=== PATIENT | male | born 1950 | race Two or more races ===

== ENCOUNTER 2024-02-02 19:43 | Inpatient (IN) | payer MEDICARE, OTHER ==
[~2024-02-02] VITALS: Ht 177.8 cm; Wt 121.6 kg
[2024-02-02] MEDS: VANCOMYCIN 1 GM in IV D5W 250 ML IV ONE (00:30)
[2024-02-02 20:28] LABS: BASOPHILS % (AUTO) 0.3 % (0.0-2.0); EOSINOPHILS % (AUTO) 0.1 % (0.0-6.0); HEMATOCRIT 45 % (39-51); HEMOGLOBIN 13.9 g/dL (13.5-17.5); LYMPHOCYTES # (AUTO) 0.7 K/uL (0.8-4.8); LYMPHOCYTES % (AUTO) 4.5 % (20.0-44.0); MEAN CORPUSCULAR HEMOGLOBIN 32 PG (26.0-33.0); MEAN CORPUSCULAR HGB CONC 31 g/dl (31.0-36.0); MEAN CORPUSCULAR VOLUME 103 fL (80-96); MONOCYTES # (AUTO) 0.8 K/uL (0.1-1.30); MONOCYTES % (AUTO) 5.3 % (2.0-12.0); NEUTROPHILS # (AUTO) 13.8 K/uL (1.8-8.9); NEUTROPHILS % (AUTO) 89.8 % (43.0-81.0); PLATELET COUNT (AUTO) 137 K/uL (150-450); RED BLOOD CELL COUNT(AUTO) 4.36 MIL/uL (4.5-6.0); RED CELL DISTRIBUTION WIDTH 15.2 % (11.5-15.0); WHITE BLOOD COUNT (AUTO) 15.3 K/uL (4.3-11.0)
[2024-02-02 20:37] LABS: CALCIUM, SERUM 8.9 mg/dL (8.5-10.1); CARBON DIOXIDE 24 mmol/L (21-32); CHLORIDE 103 mmol/L (98-107); CREATININE 2.4 mg/dL (0.6-1.3); GLUCOSE 134 mg/dL (74-106); POTASSIUM 4.3 mmol/L (3.5-5.1); SODIUM SERUM 135 mmol/L (136-145); UREA NITROGEN, BLOOD 37 mg/dL (7-18)
[2024-02-02 20:48] LABS: APPEARANCE,URINE Clear (CLEAR); BILIRUBIN,URINE Negative (NEGATIVE); BLOOD, URINE Trace-lysed Ery/uL (NEGATIVE); COLOR,URINE YELLOW (YELLOW); KETONES,URINE Trace mg/dL (NEGATIVE); LEUKOCYTE ESTERASE ,URINE Negative (NEGATIVE); NITRITE, URINE Negative (NEGATIVE); PH,URINE 5.5 (5.0-8.0); PROTEIN,URINE 30 mg/dl (NEGATIVE); UGLUCOSE Negative (NEGATIVE); UROBILINOGEN,URINE 0.2 EU/dL (0.2)
[2024-02-02] MEDS ORDERED: CEFEPIME 1 GM VIAL ONE (23:04)
[2024-02-02] MEDS ORDERED: VANCOMYCIN 1 GM /D5W 250 ML PB IV ONE (23:04)
[2024-02-02] MEDS: CEFEPIME 1 GM in IV D5W 50 ML IV ONE (23:30)
[2024-02-02] MEDS: IV NS 0.9% 1,000 ML BAG IV ONE (23:30)
[2024-02-02] MEDS: ACETAMINOPHEN ES 500 MG TABLET PO ONE (23:34)
[2024-02-03] MEDS ORDERED: ONDANSETRON HCL/PF 4 MG/2 ML VIAL IVP PRN (01:30)
[2024-02-03] MEDS: IV NS 0.9% 1,000 ML IV PRN (01:37)
[2024-02-03 01:45] VITALS: BP 113/64; TEMP 97.7; O2SAT 94
[2024-02-03 04:00] VITALS: BP 110/52; TEMP 98.2; O2SAT 95
[2024-02-03] MEDS: HYDROMORPHONE HCL 2 MG TABLET PO PRN (05:02)
[2024-02-03 07:00] VITALS: BP 102/75; TEMP 98.6; O2SAT 100
[2024-02-03 07:00] LABS: BASOPHILS % (AUTO) 0.2 % (0.0-2.0); EOSINOPHILS % (AUTO) 0.1 % (0.0-6.0); HEMATOCRIT 38 % (39-51); HEMOGLOBIN 12.2 g/dL (13.5-17.5); LYMPHOCYTES # (AUTO) 1.7 K/uL (0.8-4.8); MEAN CORPUSCULAR HEMOGLOBIN 33 PG (26.0-33.0); MEAN CORPUSCULAR HGB CONC 33 g/dl (31.0-36.0); MEAN CORPUSCULAR VOLUME 100 fL (80-96); MONOCYTES % (AUTO) 7.9 % (2.0-12.0); NEUTROPHILS # (AUTO) 10.2 K/uL (1.8-8.9); NEUTROPHILS % (AUTO) 78.8 % (43.0-81.0); PLATELET COUNT (AUTO) 111 K/uL (150-450); RED BLOOD CELL COUNT(AUTO) 3.74 MIL/uL (4.5-6.0)
[2024-02-03] MEDS ORDERED: Z GUARD REMEDY 4 OZ OINT TP PRN (08:30)
[2024-02-03] MEDS ORDERED: FURO40TA5 PO (08:46)
[2024-02-03] MEDS ORDERED: ALPR0.5T8 PO (08:46)
[2024-02-03] MEDS ORDERED: ALLO100T PO (08:46)
[2024-02-03] MEDS ORDERED: ASPI-1420 PO (08:46)
[2024-02-03] MEDS ORDERED: CLOP75TA15 PO (08:46)
[2024-02-03] MEDS ORDERED: PATI8.4P PO (08:46)
[2024-02-03] MEDS ORDERED: OMEP20CA15 PO (08:46)
[2024-02-03] MEDS ORDERED: LOSA25TA3 PO (08:46)
[2024-02-03] MEDS ORDERED: HYDR4TAB57 PO (08:46)
[2024-02-03] MEDS ORDERED: AMIO200T5 PO (08:46)
[2024-02-03] MEDS ORDERED: VITA-354 PO (08:46)
[2024-02-03] MEDS ORDERED: ATOR10TA PO (08:46)
[2024-02-03] MEDS ORDERED: CARV6.252 PO (08:46)
[2024-02-03] MEDS ORDERED: ASCO-352 PO (08:46)
[2024-02-03] MEDS: Z GUARD REMEDY 4 OZ OINT TP SCH (09:00)
[2024-02-03] MEDS ORDERED: AMIODARONE HCL 200 MG TABLET PO SCH (09:00)
[2024-02-03] MEDS ORDERED: PANTOPRAZOLE 40 MG TABLET.DR PO PRN (10:00)
[2024-02-03] MEDS: HEPARIN SODIUM, PORCINE 5000 UNITS/1 ML VIAL SQ SCH (10:21)
[2024-02-03] MEDS: CLOPIDOGREL BISULFATE 75 MG TABLET PO SCH (10:26)
[2024-02-03] MEDS: ASPIRIN EC 81 MG TABLET.DR PO SCH (10:26)
[2024-02-03] MEDS: FUROSEMIDE 40 MG TABLET PO SCH (10:26)
[2024-02-03] MEDS: ATORVASTATIN 10 MG TABLET PO SCH (10:26)
[2024-02-03] MEDS: LOSARTAN POTASSIUM 25 MG TABLET PO SCH (10:27)
[2024-02-03] MEDS: CARVEDILOL 6.25 MG TABLET PO SCH (10:27)
[2024-02-03] MEDS: ALLOPURINOL 100 MG TABLET PO SCH (10:27)
[2024-02-03] MEDS: AMIODARONE HCL 200 MG TABLET PO SCH (10:28)
[2024-02-03 10:48] LABS: THYROID STIMULATING HORMONE 0.131 uIU/mL (0.358-3.74)
[2024-02-03 11:02] LABS: CARBON DIOXIDE 23 mmol/L (21-32); CHLORIDE 102 mmol/L (98-107); GLUCOSE 113 mg/dL (74-106); MAGNESIUM 2.2 mg/dL (1.8-2.4); PHOSPHORUS 2.2 mg/dL (2.5-4.9); SODIUM SERUM 136 mmol/L (136-145); UREA NITROGEN, BLOOD 33 mg/dL (7-18)
[2024-02-03] MEDS: CEFEPIME 1 GM in IV D5W 50 ML IV SCH (11:22)
[2024-02-03 11:30] VITALS: BP_SYST 120; BP_SYST 124; BP_DIAS 51; BP_DIAS 69; BP_DIAS 86; TEMP 97.9; TEMP 98.4; TEMP 98.6; O2SAT 94; O2SAT 95; O2SAT 96
[2024-02-03] MEDS: NEUTRA PHOS 1 POWD.PACKET PO ONE (13:32)
[2024-02-03] MEDS: ACETAMINOPHEN 325 MG TABLET PO PRN (13:32)
[2024-02-03 16:00] VITALS: BP 101/61; TEMP 97.4; O2SAT 95
[2024-02-03 20:00] VITALS: BP 115/55; TEMP 97.9; O2SAT 97
[2024-02-03] MEDS: MEROPENEM 1 G in IV NS 0.9% 100 ML IV SCH (21:22)
[2024-02-04] VITALS: BP 131/61; TEMP 98.4; O2SAT 97
[2024-02-04] MEDS: VANCOMYCIN HCL 1.25 GM in IV D5W 250 ML IV SCH (00:47)
[2024-02-04 04:00] VITALS: BP 146/65; TEMP 98.1; O2SAT 97
[2024-02-04 07:11] LABS: BASOPHILS % (AUTO) 0.3 % (0.0-2.0); EOSINOPHILS % (AUTO) 0.3 % (0.0-6.0); HEMATOCRIT 36 % (39-51); LYMPHOCYTES # (AUTO) 1.3 K/uL (0.8-4.8); LYMPHOCYTES % (AUTO) 13.6 % (20.0-44.0); MEAN CORPUSCULAR HEMOGLOBIN 33 PG (26.0-33.0); MEAN CORPUSCULAR HGB CONC 33 g/dl (31.0-36.0); MEAN CORPUSCULAR VOLUME 99 fL (80-96); MONOCYTES # (AUTO) 0.9 K/uL (0.1-1.30); MONOCYTES % (AUTO) 9.6 % (2.0-12.0); NEUTROPHILS # (AUTO) 7.3 K/uL (1.8-8.9); NEUTROPHILS % (AUTO) 76.2 % (43.0-81.0); PLATELET COUNT (AUTO) 110 K/uL (150-450); RED BLOOD CELL COUNT(AUTO) 3.63 MIL/uL (4.5-6.0); RED CELL DISTRIBUTION WIDTH 14.6 % (11.5-15.0); WHITE BLOOD COUNT (AUTO) 9.5 K/uL (4.3-11.0)
[2024-02-04 07:21] LABS: CHOLESTEROL 106 mg/dL (<200); HDL CHOLESTEROL 41 mg/dL (40-60); LDL 54 mg/dL (0-99); TRIGLYCERIDES 87 mg/dL (30-150)
[2024-02-04 07:24] LABS: ALANINE AMINOTRANSFERASE 138 U/L (12-78); ALBUMIN 2.4 g/dL (3.4-5.0); ALKALINE PHOSPHATASE 141 U/L (46-116); ASPARTATE AMINOTRANSFERASE 110 U/L (15-37); BILIRUBIN,TOTAL 1.2 mg/dL (0.2-1.0); CALCIUM, SERUM 9.2 mg/dL (8.5-10.1); CARBON DIOXIDE 24 mmol/L (21-32); CHLORIDE 104 mmol/L (98-107); CREATININE 1.7 mg/dL (0.6-1.3); GLUCOSE 106 mg/dL (74-106); MAGNESIUM 2.2 mg/dL (1.8-2.4); PHOSPHORUS 2.5 mg/dL (2.5-4.9); SODIUM SERUM 138 mmol/L (136-145); TOTAL PROTEIN, SERUM 6.7 g/dL (6.4-8.2); UREA NITROGEN, BLOOD 27 mg/dL (7-18)
[2024-02-04 07:30] VITALS: BP 128/69; TEMP 98.4; O2SAT 96
[2024-02-04] MEDS: MUPIROCIN OINT 2% 22 GM TUBE TP SCH (08:34)
[2024-02-04 16:00] VITALS: BP 130/58; TEMP 98.2; O2SAT 96
[2024-02-04 20:00] VITALS: BP 111/56; TEMP 97.4; O2SAT 94
[2024-02-04] MEDS: diphenhydrAMINE HCL 50 MG/ML VIAL IV ONE (20:18)
[2024-02-04] MEDS: METOCLOPRAMIDE HCL 10 MG/2 ML VIAL IV ONE (20:19)
[2024-02-05] VITALS: BP 132/65; TEMP 97.4; O2SAT 96
[2024-02-05 04:00] VITALS: BP 139/75; TEMP 97.2; TEMP 97.8; O2SAT 94
[2024-02-05 08:00] VITALS: BP 138/76; TEMP 97.8; O2SAT 95
[2024-02-05] MEDS: SUMATRIPTAN SUCCINATE 100 MG TABLET PO PRN (08:34)
[2024-02-05 09:43] LABS: BASOPHILS % (AUTO) 0.5 % (0.0-2.0); EOSINOPHILS # (AUTO) 0.1 K/uL (0.0-0.7); HEMATOCRIT 37 % (39-51); HEMOGLOBIN 12.3 g/dL (13.5-17.5); LYMPHOCYTES # (AUTO) 1.4 K/uL (0.8-4.8); LYMPHOCYTES % (AUTO) 15.9 % (20.0-44.0); MEAN CORPUSCULAR HEMOGLOBIN 33 PG (26.0-33.0); MEAN CORPUSCULAR HGB CONC 33 g/dl (31.0-36.0); MEAN CORPUSCULAR VOLUME 100 fL (80-96); MONOCYTES # (AUTO) 0.7 K/uL (0.1-1.30); MONOCYTES % (AUTO) 7.6 % (2.0-12.0); NEUTROPHILS # (AUTO) 6.5 K/uL (1.8-8.9); PLATELET COUNT (AUTO) 138 K/uL (150-450); RED BLOOD CELL COUNT(AUTO) 3.73 MIL/uL (4.5-6.0); RED CELL DISTRIBUTION WIDTH 14.9 % (11.5-15.0); WHITE BLOOD COUNT (AUTO) 8.6 K/uL (4.3-11.0)
[2024-02-05 09:53] LABS: ALANINE AMINOTRANSFERASE 108 U/L (12-78); ALBUMIN 2.2 g/dL (3.4-5.0); ALKALINE PHOSPHATASE 139 U/L (46-116); ASPARTATE AMINOTRANSFERASE 65 U/L (15-37); BILIRUBIN,DIRECT 0.3 mg/dL (0.0-0.2); BILIRUBIN,TOTAL 0.8 mg/dL (0.2-1.0); CALCIUM, SERUM 9.3 mg/dL (8.5-10.1); CARBON DIOXIDE 27 mmol/L (21-32); CHLORIDE 103 mmol/L (98-107); CREATININE 1.7 mg/dL (0.6-1.3); GLUCOSE 116 mg/dL (74-106); MAGNESIUM 1.9 mg/dL (1.8-2.4); PHOSPHORUS 2.6 mg/dL (2.5-4.9); POTASSIUM 4.2 mmol/L (3.5-5.1); SODIUM SERUM 138 mmol/L (136-145); TOTAL PROTEIN, SERUM 6.8 g/dL (6.4-8.2); UREA NITROGEN, BLOOD 26 mg/dL (7-18)
[2024-02-05 12:00] VITALS: BP 123/76; TEMP 98.2; O2SAT 97
[2024-02-05 16:00] VITALS: BP 128/65; TEMP 98.4; O2SAT 96
[2024-02-05 20:00] VITALS: BP 141/68; TEMP 98.1; O2SAT 95
[2024-02-06 00:14] VITALS: BP 139/63; TEMP 97.5; O2SAT 96
[2024-02-06 04:00] VITALS: BP 137/65; TEMP 97.3; O2SAT 97
[2024-02-06] MEDS: HYDROMORPHONE HCL 2 MG TABLET PO PRN (04:06)
[2024-02-06 07:00] VITALS: BP 132/63; TEMP 97.7; O2SAT 95
[2024-02-06 07:01] LABS: BASOPHILS % (AUTO) 0.4 % (0.0-2.0); EOSINOPHILS # (AUTO) 0.1 K/uL (0.0-0.7); HEMATOCRIT 37 % (39-51); HEMOGLOBIN 12.5 g/dL (13.5-17.5); LYMPHOCYTES # (AUTO) 1.8 K/uL (0.8-4.8); LYMPHOCYTES % (AUTO) 19.4 % (20.0-44.0); MEAN CORPUSCULAR HEMOGLOBIN 33 PG (26.0-33.0); MEAN CORPUSCULAR HGB CONC 34 g/dl (31.0-36.0); MEAN CORPUSCULAR VOLUME 99 fL (80-96); MONOCYTES # (AUTO) 0.9 K/uL (0.1-1.30); MONOCYTES % (AUTO) 9.8 % (2.0-12.0); NEUTROPHILS # (AUTO) 6.3 K/uL (1.8-8.9); NEUTROPHILS % (AUTO) 69.4 % (43.0-81.0); PLATELET COUNT (AUTO) 159 K/uL (150-450); RED BLOOD CELL COUNT(AUTO) 3.74 MIL/uL (4.5-6.0); RED CELL DISTRIBUTION WIDTH 14.2 % (11.5-15.0); WHITE BLOOD COUNT (AUTO) 9.1 K/uL (4.3-11.0)
[2024-02-06 07:43] LABS: CALCIUM, SERUM 9.6 mg/dL (8.5-10.1); CARBON DIOXIDE 28 mmol/L (21-32); CHLORIDE 100 mmol/L (98-107); CREATININE 1.7 mg/dL (0.6-1.3); GLUCOSE 92 mg/dL (74-106); MAGNESIUM 2.2 mg/dL (1.8-2.4); PHOSPHORUS 2.8 mg/dL (2.5-4.9); POTASSIUM 3.9 mmol/L (3.5-5.1); SODIUM SERUM 134 mmol/L (136-145); UREA NITROGEN, BLOOD 23 mg/dL (7-18)
[2024-02-06 08:58] LABS: FREE PSA 0.61 ng/mL (0.00-45); PROSTATE SPECIFIC ANTIGEN SCR 3.85 ng/mL (0.00-4.00)
[2024-02-06 16:00] VITALS: BP 122/66; TEMP 97.9; O2SAT 95
[2024-02-06 20:00] VITALS: BP 134/59; TEMP 97.2; O2SAT 95
[2024-02-07] VITALS: BP 133/64; TEMP 97.6; O2SAT 94
[2024-02-07] MEDS ORDERED: SUMATRIPTAN SUCCINATE 100 MG TABLET ONE (03:38)
[2024-02-07 04:00] VITALS: BP 140/74; TEMP 97.8; O2SAT 95
[2024-02-07 05:00] VITALS: BP 140/74; TEMP 97.8; O2SAT 95
[2024-02-07 07:34] LABS: BASOPHILS % (AUTO) 0.5 % (0.0-2.0); EOSINOPHILS # (AUTO) 0.1 K/uL (0.0-0.7); HEMATOCRIT 39 % (39-51); LYMPHOCYTES # (AUTO) 1.7 K/uL (0.8-4.8); LYMPHOCYTES % (AUTO) 20.5 % (20.0-44.0); MEAN CORPUSCULAR HEMOGLOBIN 33 PG (26.0-33.0); MEAN CORPUSCULAR HGB CONC 33 g/dl (31.0-36.0); MEAN CORPUSCULAR VOLUME 99 fL (80-96); MONOCYTES # (AUTO) 0.8 K/uL (0.1-1.30); MONOCYTES % (AUTO) 9.9 % (2.0-12.0); NEUTROPHILS # (AUTO) 5.5 K/uL (1.8-8.9); NEUTROPHILS % (AUTO) 68.1 % (43.0-81.0); PLATELET COUNT (AUTO) 160 K/uL (150-450); RED BLOOD CELL COUNT(AUTO) 3.99 MIL/uL (4.5-6.0); RED CELL DISTRIBUTION WIDTH 14.5 % (11.5-15.0); WHITE BLOOD COUNT (AUTO) 8.1 K/uL (4.3-11.0)
[2024-02-07 08:03] LABS: CALCIUM, SERUM 9.7 mg/dL (8.5-10.1); CARBON DIOXIDE 26 mmol/L (21-32); CHLORIDE 103 mmol/L (98-107); CREATININE 1.6 mg/dL (0.6-1.3); GLUCOSE 94 mg/dL (74-106); MAGNESIUM 2.3 mg/dL (1.8-2.4); PHOSPHORUS 3.1 mg/dL (2.5-4.9); POTASSIUM 4.2 mmol/L (3.5-5.1); SODIUM SERUM 138 mmol/L (136-145); UREA NITROGEN, BLOOD 20 mg/dL (7-18)
[2024-02-07 08:38] VITALS: BP 170/88; TEMP 98.4; O2SAT 97
[2024-02-07] MEDS: LIDOCAINE 1% INJ 50 ML MDV IJ ONE (14:10)
[2024-02-07 16:13] VITALS: BP 120/68; TEMP 98.1; O2SAT 97
[2024-02-07 20:00] VITALS: BP 110/66; TEMP 97.5; O2SAT 96
[2024-02-07] MEDS: NORTRIPTYLINE HCL 10 MG CAPSULE PO SCH (21:25)
[2024-02-08] MEDS ORDERED: SUMATRIPTAN SUCCINATE 25 MG TABLET ONE (03:55)
[2024-02-08] MEDS: SUMATRIPTAN SUCCINATE 25 MG TABLET PO ONE (03:58)
[2024-02-08 06:50] LABS: BASOPHILS # (AUTO) 0.1 K/uL (0.0-0.2); BASOPHILS % (AUTO) 0.7 % (0.0-2.0); EOSINOPHILS # (AUTO) 0.1 K/uL (0.0-0.7); EOSINOPHILS % (AUTO) 1.3 % (0.0-6.0); HEMATOCRIT 38 % (39-51); HEMOGLOBIN 12.8 g/dL (13.5-17.5); LYMPHOCYTES # (AUTO) 1.8 K/uL (0.8-4.8); LYMPHOCYTES % (AUTO) 23.2 % (20.0-44.0); MEAN CORPUSCULAR HEMOGLOBIN 33 PG (26.0-33.0); MEAN CORPUSCULAR HGB CONC 33 g/dl (31.0-36.0); MEAN CORPUSCULAR VOLUME 98 fL (80-96); MONOCYTES # (AUTO) 0.7 K/uL (0.1-1.30); MONOCYTES % (AUTO) 9.7 % (2.0-12.0); NEUTROPHILS % (AUTO) 65.1 % (43.0-81.0); PLATELET COUNT (AUTO) 155 K/uL (150-450); RED BLOOD CELL COUNT(AUTO) 3.91 MIL/uL (4.5-6.0); RED CELL DISTRIBUTION WIDTH 14.2 % (11.5-15.0); WHITE BLOOD COUNT (AUTO) 7.7 K/uL (4.3-11.0)
[2024-02-08 07:02] LABS: CARBON DIOXIDE 28 mmol/L (21-32); CHLORIDE 99 mmol/L (98-107); CREATININE 1.7 mg/dL (0.6-1.3); GLUCOSE 94 mg/dL (74-106); MAGNESIUM 2.1 mg/dL (1.8-2.4); PHOSPHORUS 3.1 mg/dL (2.5-4.9); POTASSIUM 4.1 mmol/L (3.5-5.1); SODIUM SERUM 135 mmol/L (136-145); UREA NITROGEN, BLOOD 21 mg/dL (7-18)
[2024-02-08 07:30] VITALS: BP 151/65; TEMP 97.5; O2SAT 93
[2024-02-08] MEDS ORDERED: BACLOFEN (10 MG) 10 MG TABLET PO PRN (10:00)
[2024-02-08 16:00] VITALS: BP 123/76; TEMP 98.1; O2SAT 96
[2024-02-08 20:00] VITALS: BP 135/101; TEMP 97.5; O2SAT 99
== END 2024-02-08 20:45 | DRG 871 ==
LOC: ER 19:45 → TELE 23:55 → MED 02-07 06:06
PROVIDERS: ADMIT Nurse Practitioner Acute Care; ATTEND Nurse Practitioner Family
PROC: 05HD33Z Insertion of Infusion Device into Right Cephalic Vein, Percutaneous Approach (ICD-10-PCS; principal; 2024-02-06)
DX: A41.9 Sepsis, unspecified organism (principal); N17.0 Acute kidney failure with tubular necrosis; N39.0 Urinary tract infection, site not specified; I13.0 Hypertensive heart and chronic kidney disease with heart failure and stage 1 through stage 4 chronic kidney disease, or unspecified chronic kidney disease; Z16.24 Resistance to multiple antibiotics; D68.59 Other primary thrombophilia; E87.1 Hypo-osmolality and hyponatremia; I47.20 Ventricular tachycardia, unspecified; L97.929 Non-pressure chronic ulcer of unspecified part of left lower leg with unspecified severity; N18.9 Chronic kidney disease, unspecified; Z18.12 Retained nonmagnetic metal fragments; E66.01 Morbid (severe) obesity due to excess calories; I50.9 Heart failure, unspecified; I87.309 Chronic venous hypertension (idiopathic) without complications of unspecified lower extremity; M17.11 Unilateral primary osteoarthritis, right knee; M21.172 Varus deformity, not elsewhere classified, left ankle; V29.99XS Rider (driver) (passenger) of other motorcycle injured in unspecified traffic accident, sequela; R26.9 Unspecified abnormalities of gait and mobility; G89.29 Other chronic pain; E86.1 Hypovolemia; G43.909 Migraine, unspecified, not intractable, without status migrainosus; M25.461 Effusion, right knee; Z79.82 Long term (current) use of aspirin; Z79.02 Long term (current) use of antithrombotics/antiplatelets; Z79.899 Other long term (current) drug therapy
CPT/HCPCS: 36410; 36415; 70450-TC; 71045-TC; 72125-TC; 73564-TC; 76700-TC; 80048-TC; 80053-TC; 80061-TC; 80076-TC; 80202-TC; 83605-TC; 83735-TC; 84100-TC; 84153-TC; 84154-TC; 84439-TC; 84443-TC; 84484-TC; 85025-TC; 87040-TC; 87081-TC; 87086-TC; 93307-TC; 97110-TC; 97112-TC; 97116-TC; 97530-TC; 97535-TC; A4223; G0378; J0692; J1200; J1644; J2185; J2765; J3370; J3490; J7030; J7060